=== PATIENT | male | born 1955 | race Caucasian/White ===

== ENCOUNTER 2020-09-30 12:52 | Outpatient (REF) | payer OTHER, SELFPAY ==
[2020-09-30 13:28] LABS: Hemoglobin 13.7 g/dl (14.0-18.0); Mean Corpuscular HGB Conc 33.4 g/dl (31.0-36.0); Mean Corpuscular Volume 89.7 fL (80-98); Mean Platelet Volume 11.7 fL (9.4-12.4); Platelet Count 154 X10*3/uL (160-400); Red Blood Count 4.57 X10*6/uL (4.60-5.80); White Blood Count 3.2 X10*3/uL (4.8-10.8)
[2020-09-30 13:53] LABS: Alanine Aminotransferase 27 U/L (0-40); Anion Gap 13 (12-20); Blood Urea Nitrogen 12 mg/dL (9-16); Calcium 9.2 mg/dL (8.4-10.2); Carbon Dioxide 29 mmol/L (22-29); Chloride 106 mmol/L (96-108); Cholesterol 225 mg/dL; Estimated Glomerular Filt Rate > 60; Glucose Random 122 mg/dL (60-115); HDL Cholesterol 45 mg/dL; Potassium 4.5 mmol/l (3.3-5.1); Sodium 143 mmol/L (135-145)
[2020-09-30 16:27] LABS: Cocaine Screen Urine Not Detected (Not Detect); Opiate Screen Urine POSITIVE (Not Detect)
[2020-09-30 16:34] LABS: Benzodiazepines Screen Urine Not Detected (Not Detect)
[2020-10-01 07:16] LABS: LDL Cholesterol Direct 155 mg/dL (<100)
[2020-10-03 22:32] LABS: Fentanyl, Ur NEGATIVE ng/mL (<0.5)
[2020-10-04 10:27] LABS: Buprenorphine Negative; Norbuprenorphine Negative
[2020-10-04 17:01] LABS: Oxymorphone Random Urine NEGATIVE ng/mL (<50)
[2020-10-05 11:10] LABS: Oxycodone Random Urine NEGATIVE ng/mL (<50)
[2020-10-05 14:21] LABS: EDDP (Methadone Metabolite) negative; Methadone, Urine MS negative
== END 2020-09-30 12:53 | disposition home or self-care (01) ==
LOC: HO.LAB 12:52
PROVIDERS: PCP Internal Medicine; Visit Provider Internal Medicine
DX: E78.5 Hyperlipidemia, unspecified (principal); Z79.891 Long term (current) use of opiate analgesic; Z00.00 Encounter for general adult medical examination without abnormal findings; I10 Essential (primary) hypertension; J45.909 Unspecified asthma, uncomplicated
CPT/HCPCS: 36415; 80048; 80307; 80348; 80354; 80358; 80365; 82465; 83718; 83721; 84460; 85027

== ENCOUNTER 2020-12-16 11:35 | Outpatient (REF) | payer OTHER, SELFPAY ==
[2020-12-16 13:10] LABS: Cocaine Screen Urine Not Detected (Not Detect); Opiate Screen Urine POSITIVE (Not Detect)
[2020-12-19 11:28] LABS: Alphahydroxymidazolam,GCMS Ur NEGATIVE ng/mL (<50); Alphahydroxytriazolam, GCMS Ur NEGATIVE ng/mL (<50); Alprazolam, GCMS Urine NEGATIVE ng/mL (<25); Aminoclonazepam, GCMS Urine NEGATIVE ng/mL (<25); Flurazepam Metabolite,GCMS Ur NEGATIVE ng/mL (<50); Lorazepam GCMS Urine NEGATIVE ng/mL (<50); Nordiazepam, GCMS Urine NEGATIVE ng/mL (<50); Oxazepam, GCMS Urine NEGATIVE ng/mL (<50); Temazepam, GCMS Urine NEGATIVE ng/mL (<50)
[2020-12-19 13:02] LABS: Buprenorphine Negative; Norbuprenorphine Negative
[2020-12-19 18:12] LABS: Fentanyl, Ur NEGATIVE ng/mL (<0.5); Norfentanyl, Ur NEGATIVE ng/mL (<0.5)
[2020-12-19 20:58] LABS: Oxycodone Random Urine NEGATIVE ng/mL (<50); Oxymorphone Random Urine NEGATIVE ng/mL (<50)
[2020-12-20 10:17] LABS: EDDP (Methadone Metabolite) negative; Methadone, Urine MS negative
== END 2020-12-16 11:36 | disposition home or self-care (01) ==
LOC: HO.LAB 11:35
PROVIDERS: PCP Internal Medicine; Visit Provider Internal Medicine
DX: Z79.891 Long term (current) use of opiate analgesic (principal)
CPT/HCPCS: 80307; 80346; 80348; 80354; 80358; 80365

== ENCOUNTER 2021-02-17 09:52 | Outpatient (REF) | payer OTHER, SELFPAY ==
[2021-02-17 10:59] LABS: MANUAL DIFF FLAG NO
[2021-02-17 11:05] LABS: Basophils Percent Auto 0.3 % (0-2); Eosinophils Absolute Auto 0.2 X10*3/uL (0.0-0.4); Eosinophils Percent Auto 2.4 % (0-4); Hematocrit 41.1 % (42-52); Hemoglobin 13.9 g/dl (14.0-18.0); Imm Gran Abs Auto 0.01 X10*3/uL (0.00-0.03); Imm Gran Pct Auto 0.2 % (0.0-0.4); Lymphocytes Absolute Auto 0.8 X10*3/uL (1.2-4.9); Lymphocytes Percent Auto 13.7 % (20-40); Mean Corpuscular HGB Conc 33.8 g/dl (31.0-36.0); Mean Corpuscular Hemoglobin 30.3 pg (27.0-33.0); Mean Corpuscular Volume 89.5 fL (80-98); Monocytes Absolute Auto 0.7 X10*3/uL (0.1-1.2); Monocytes Percent Auto 11.2 % (2-11); Neutrophils Absolute Auto 4.4 X10*3/uL (2.0-8.3); Neutrophils Percent Auto 72.2 % (45-73); Platelet Count 130 X10*3/uL (160-400); Red Blood Count 4.59 X10*6/uL (4.60-5.80); Red Cell Distribution Width 12.4 % (11.0-16.0); White Blood Count 6.2 X10*3/uL (4.8-10.8)
[2021-02-17 12:09] LABS: Alanine Aminotransferase 29 U/L (0-40); Anion Gap 13 (12-20); Blood Urea Nitrogen 24 mg/dL (9-16); Carbon Dioxide 32 mmol/L (22-29); Chloride 105 mmol/L (96-108); Cholesterol 134 mg/dL; Estimated Glomerular Filt Rate 41; Glucose Random 103 mg/dL (60-115); HDL Cholesterol 52 mg/dL; Potassium 4.1 mmol/L (3.3-5.1); Sodium 146 mmol/L (135-145)
[2021-02-17 12:10] LABS: Amphetamine Screen Urine Not Detected (Not Detect); Barbiturates, Urine Not Detected (Not Detect); Benzodiazepines Screen Urine Not Detected (Not Detect); Cannabinoid Screen Urine Not Detected (Not Detect); Cocaine Screen Urine Not Detected (Not Detect); Opiate Screen Urine POSITIVE (Not Detect); Phencyclidine Screen Urine Not Detected (Not Detect)
[2021-02-18 05:51] LABS: LDL Cholesterol Direct 57 mg/dL (<100)
[2021-02-20 02:06] LABS: Fentanyl, Ur NEGATIVE ng/mL (<0.5); Norfentanyl, Ur NEGATIVE ng/mL (<0.5)
[2021-02-22 09:12] LABS: Buprenorphine Negative; Norbuprenorphine Negative
== END 2021-02-17 09:53 | disposition home or self-care (01) ==
LOC: HO.LAB 09:52
PROVIDERS: PCP Internal Medicine; Visit Provider Internal Medicine
DX: Z00.00 Encounter for general adult medical examination without abnormal findings (principal); I10 Essential (primary) hypertension; E78.5 Hyperlipidemia, unspecified; J45.909 Unspecified asthma, uncomplicated; Z79.891 Long term (current) use of opiate analgesic
CPT/HCPCS: 80048; 80307; 80348; 80354; 82465; 83718; 83721; 84460; 85025

== ENCOUNTER 2021-03-31 12:01 | Day surgery (SDC) | payer OTHER, SELFPAY ==
[2021-03-27 11:45] VITALS: BMI 28.8
--- NOTE | 2021-03-29 13:42 | HO.ANESPROP2 ---
HPI - Anesthesia Eval Consult details Narrative: 66yo M for Colonoscopy chronic opioids PMFSH Past Medical History Medical History Anxiety and depression Arthritis Asthma Elevated cholesterol HTN (hypertension) Low back pain Surgical History Surgical History Hx of anterior cruciate ligament surgery Hx of colonoscopy Hx of shoulder surgery Social History Social History Smoking Status: Never smoker Use of substances other than those prescribed or required for medical reasons: No Are you DNR?: No Advance Directives: No Advance Directives Information Provided: No Advance Directives on File: No Meds Allergies Allergy/AdvReac Type Severity Reaction Status Date / Time No Known Allergies Allergy Verified 03/31/21 12:50 Home Medications Medication Instructions Recorded Confirmed Last Taken Type albuterol sulfate 2 puff INHALATION Q6H PRN 03/27/21 03/27/21 Unknown History amlodipine-benazepril 1 cap PO DAILY 03/27/21 03/27/21 Unknown History bupropion HCl 1 tab PO BID 03/27/21 03/27/21 03/31/21 06:00 History buspirone 5 tab PO BEDTIME 03/27/21 03/27/21 Unknown History lisinopril 1 tab PO DAILY 03/27/21 03/27/21 Unknown History montelukast 1 tab PO BEDTIME 03/27/21 03/27/21 Unknown History morphine 1 tab PO QID PRN 03/27/21 03/27/21 03/31/21 06:00 History pravastatin 1 tab PO DAILY 03/27/21 03/27/21 Unknown History venlafaxine 100 mg PO QPM 03/27/21 03/27/21 Unknown History venlafaxine 200 mg PO QAM 03/27/21 03/27/21 03/31/21 06:00 History Exam Exam Date and Time: March 29, 2021 1342 Height,Weight and Vital Signs: Height 5 ft 8 in Weight 86.183 kg Assessment and Plan Assessment Anesthesia Assessment: Chart Reviewed
[2021-03-31 13:20] VITALS: BP 149/91; PULSE 74; RESP 18; TEMP 36.2; O2SAT 99
[2021-03-31] MEDS: Lactated Ringers 1,000 ML 100 ML IVCONT (13:38)
--- NOTE | 2021-03-31 14:29 | HO.ANESPROP2 ---
[facility] Past Medical History Medical History Anxiety and depression Arthritis Asthma Elevated cholesterol HTN (hypertension) Low back pain Surgical History Surgical History Hx of anterior cruciate ligament surgery Hx of colonoscopy Hx of shoulder surgery Social History Social History Smoking Status: Never smoker Use of substances other than those prescribed or required for medical reasons: No Are you DNR?: No Advance Directives: No Advance Directives Information Provided: No Advance Directives on File: No Meds Allergies Allergy/AdvReac Type Severity Reaction Status Date / Time No Known Allergies Allergy Verified 03/31/21 12:50 Active Medications: Current Medications Generic Name Dose Route Start Last Admin Trade Name Freq PRN Reason Stop Dose Admin Albuterol Sulfate 2.5 mg 03/31/21 13:03 Albuterol Sulfate (0.083%) 2.5 Mg/3 Ml Vial.Neb INHALE ONCE PRN Shortness of Breath/Wheezing Lactated Ringer's 1,000 mls @ 100 mls/hr 03/31/21 13:15 03/31/21 13:38 Lr IVCONT 100 mls/hr .Q10H ELIDIA Administration Sodium Biphosphate/Sodium Phosphate 133 ml 03/31/21 13:03 Sodium Phosphate,Kane-Dibasic 133 Ml Enema [place] ONCE PRN Poor Colonoscopy Prep Results Home Medications Medication Instructions Recorded Confirmed Last Taken Type albuterol sulfate 2 puff INHALATION Q6H PRN 03/27/21 03/27/21 Unknown History amlodipine-benazepril 1 cap PO DAILY 03/27/21 03/27/21 Unknown History bupropion HCl 1 tab PO BID 03/27/21 03/27/21 03/31/21 06:00 History buspirone 5 tab PO BEDTIME 03/27/21 03/27/21 Unknown History lisinopril 1 tab PO DAILY 03/27/21 03/27/21 Unknown History montelukast 1 tab PO BEDTIME 03/27/21 03/27/21 Unknown History morphine 1 tab PO QID PRN 03/27/21 03/27/21 03/31/21 06:00 History pravastatin 1 tab PO DAILY 03/27/21 03/27/21 Unknown History venlafaxine 100 mg PO QPM 03/27/21 03/27/21 Unknown History venlafaxine 200 mg PO QAM 03/27/21 03/27/21 03/31/21 06:00 History Exam Exam Date and Time: March 31, 2021 1429 Height,Weight and Vital Signs: Height 5 ft 8 in Weight 86.183 kg Last Vital Signs Temp 97.2 F 03/31/21 13:20 Pulse 74 03/31/21 13:20 Resp 18 03/31/21 13:20 BP 149/91 H 03/31/21 13:20 Pulse Ox 99 03/31/21 13:20 Airway Mallampati Class: II TM Dist: >3cm Neck ROM: Full Heart: RRR Lungs: CYA
[2021-03-31 14:54] VITALS: BP 110/72; PULSE 62; RESP 16; TEMP 36.7; O2SAT 99
--- NOTE | 2021-03-31 14:55 | PM.OP ---
Brief Operative Note Date of Service: 03/31/21 Pre-op diagnosis: Screening Post-op diagnosis: other (Colon polyps) Procedure: Colonoscopy to cecum and TI with biopsy and removal of polyps Surgeon: Malik Willson Anesthesia: MAC Was an Certified Residential Medication Aide used for this Procedure?: No Estimated blood loss (mL): 4.0 Pathology: other (A. Transverse colon polyp B. Colon polyp at 40cm C. Rectal polyp) Condition: stable Disposition: PACU
[2021-03-31 15:07] VITALS: BP 121/76; PULSE 66; RESP 18; O2SAT 99
--- NOTE | 2021-03-31 16:23 | OP_ITS ---
SURGEON: Malik Willson MD INDICATIONS: The patient presents for evaluation of colorectal cancer screening. Full consent has been obtained from him for this, including risks of bleeding and perforation. PREOPERATIVE DIAGNOSIS: Colorectal cancer screening. POSTOPERATIVE DIAGNOSIS: PROCEDURE PERFORMED: Colonoscopy to cecum and terminal ileum with biopsy and removal of polyps. ESTIMATED BLOOD LOSS: COMPLICATIONS: ANESTHESIA: Monitored anesthesia care. ASSISTANTS: SPECIMENS: POSTOPERATIVE DIAGNOSES: Colorectal cancer screening, colon polyps, diverticulosis, and internal hemorrhoids. DESCRIPTION OF PROCEDURE: The patient was placed in the left lateral decubitus position. The digital rectal exam revealed no abnormalities. The Olympus video pediatric colonoscope was entered into the rectum and advanced easily to the cecum. Once in the cecum, I did identify normal-appearing cecal pouch with appendiceal orifice and a normal-appearing ileocecal valve. The terminal ileum was cannulated and appeared normal. The scope was withdrawn back in the colon. The entire cecum and ileocecal valve appeared normal. The scope was slowly withdrawn assessing all mucosal surfaces carefully. Preparation was excellent. In the transverse colon, at 40 cm, and in the rectum, were flat approximately 4 or 5 mm polyps, which were all biopsied and completely removed with cold biopsy forceps. I did not visualize any other polyps, colitis, nor angiodysplasia. There was a [id number] amount of sigmoid diverticulosis. In the rectum, scope was retroflexed visualizing internal hemorrhoids, but no other pathology. The rectal mucosa appeared normal. The scope was straightened out and withdrawn from the patient. He tolerated the procedure well and was returned to recovery area in stable condition. IMPRESSION: 1. Colon polyps, status post biopsy and removal. 2. Diverticulosis. 3. Internal hemorrhoids. PLAN: The results of the biopsy will be checked. If these are tubular adenoma, I would recommend a followup colonoscopy in 5 years. If they are all hyperplastic, I would recommend a followup colonoscopy in 10 years. He was advised not to use any aspirin or NSAIDs for 1 week. This has been discussed with his . MD RAJESH Molina/LANETTEL / [id number]
== END 2021-03-31 15:45 | disposition home or self-care (01) ==
PROVIDERS: PCP Internal Medicine; Visit Provider Internal Medicine
PROC: 0DJD8ZZ Inspection of Lower Intestinal Tract, Via Natural or Artificial Opening Endoscopic (ICD-10-PCS; CPT 45378; principal; 2021-03-31 13:30)
DX: Z12.11 Encounter for screening for malignant neoplasm of colon (principal); D12.3 Benign neoplasm of transverse colon; D12.5 Benign neoplasm of sigmoid colon; K62.1 Rectal polyp; K57.30 Diverticulosis of large intestine without perforation or abscess without bleeding; K64.8 Other hemorrhoids; I10 Essential (primary) hypertension; F32.9 Major depressive disorder, single episode, unspecified; J45.909 Unspecified asthma, uncomplicated; Z79.899 Other long term (current) drug therapy
CPT/HCPCS: 45380; 88305

== ENCOUNTER 2021-04-26 09:58 | Outpatient (REF) | payer OTHER, SELFPAY ==
[2021-04-26 11:22] LABS: Blood Urea Nitrogen 22 mg/dL (9-16); Estimated Glomerular Filt Rate > 60; Potassium 4.1 mmol/L (3.3-5.1)
[2021-04-26 12:14] LABS: Amphetamine Screen Urine Not Detected (Not Detect); Barbiturates, Urine Not Detected (Not Detect); Benzodiazepines Screen Urine Not Detected (Not Detect); Cannabinoid Screen Urine Not Detected (Not Detect); Cocaine Screen Urine Not Detected (Not Detect); Opiate Screen Urine POSITIVE (Not Detect); Phencyclidine Screen Urine Not Detected (Not Detect)
[2021-04-29 12:27] LABS: EDDP (Methadone Metabolite) negative; Methadone, Urine MS negative
[2021-04-29 13:15] LABS: Fentanyl, Ur NEGATIVE; Norfentanyl, Ur NEGATIVE
[2021-05-02 08:23] LABS: Codeine, Ur NEGATIVE; Hydrocodone, Ur NEGATIVE; Hydromorphone, Ur 339
[2021-05-02 08:24] LABS: Morphine, Ur >10000; Norhydrocodone, Ur NEGATIVE
[2021-05-02 08:26] LABS: Oxycodone, Ur NEGATIVE; Oxymorphone, Ur NEGATIVE
== END 2021-04-26 09:59 | disposition home or self-care (01) ==
LOC: HO.LAB 09:58
PROVIDERS: PCP Internal Medicine; Visit Provider Internal Medicine
DX: I10 Essential (primary) hypertension (principal); Z87.891 Personal history of nicotine dependence
CPT/HCPCS: 80307; 80354; 80358; 80364; 80365; 82565; 84132; 84520

== ENCOUNTER 2021-07-28 11:19 | Outpatient (REF) | payer OTHER, SELFPAY ==
[2021-07-28 14:52] LABS: Cocaine Screen Urine Not Detected (Not Detect); Fentanyl, urine Not Detected (Not Detect); Opiate Screen Urine POSITIVE (Not Detect)
[2021-08-03 15:02] LABS: EDDP (Methadone Metabolite) negative; Methadone, Urine MS negative
[2021-08-05 07:59] LABS: Buprenorphine NEGATIVE
[2021-08-05 08:00] LABS: Naloxone NEGATIVE; Norbuprenorphine NEGATIVE
== END 2021-07-28 11:20 | disposition home or self-care (01) ==
LOC: HO.LAB 11:19
PROVIDERS: PCP Internal Medicine; Visit Provider Internal Medicine
DX: Z79.891 Long term (current) use of opiate analgesic (principal)
CPT/HCPCS: 80307; 80346; 80348; 80358; 80362; 80364; 80365

== ENCOUNTER 2021-10-27 11:07 | Outpatient (REF) | payer OTHER, SELFPAY ==
[2021-10-27 14:42] LABS: Amphetamine Screen Urine Not Detected (Not Detect); Barbiturates, Urine Not Detected (Not Detect); Benzodiazepines Screen Urine Not Detected (Not Detect); Cannabinoid Screen Urine Not Detected (Not Detect); Cocaine Screen Urine Not Detected (Not Detect); Fentanyl, urine Not Detected (Not Detect); Opiate Screen Urine POSITIVE (Not Detect); Phencyclidine Screen Urine Not Detected (Not Detect)
[2021-11-02 09:11] LABS: EDDP (Methadone Metabolite) negative; Methadone, Urine MS negative
[2021-11-06 11:55] LABS: Buprenorphine NEGATIVE; Naloxone NEGATIVE
== END 2021-10-27 11:08 | disposition home or self-care (01) ==
LOC: HO.LAB 11:07
PROVIDERS: PCP Internal Medicine; Visit Provider Internal Medicine
DX: Z79.891 Long term (current) use of opiate analgesic (principal)
CPT/HCPCS: 80307; 80348; 80358; 80362

== ENCOUNTER 2022-02-19 13:37 | Outpatient (REF) | payer OTHER, SELFPAY ==
[2022-02-19 14:57] LABS: Alanine Aminotransferase 21 U/L (0-40); Anion Gap 14 (12-20); Blood Urea Nitrogen 26 mg/dL (9-16); Carbon Dioxide 25 mmol/L (22-29); Chloride 107 mmol/L (96-108); Estimated Glomerular Filt Rate 40; Glucose Random 111 mg/dL (60-115); HDL Cholesterol 45 mg/dL; Potassium 5.7 mmol/L (3.3-5.1); Sodium 140 mmol/L (135-145)
[2022-02-19 16:27] LABS: Amphetamine Screen Urine Not Detected (Not Detect); Barbiturates, Urine Not Detected (Not Detect); Benzodiazepines Screen Urine Not Detected (Not Detect); Cannabinoid Screen Urine Not Detected (Not Detect); Cocaine Screen Urine Not Detected (Not Detect); Fentanyl, urine Not Detected (Not Detect); Opiate Screen Urine POSITIVE (Not Detect); Phencyclidine Screen Urine Not Detected (Not Detect)
[2022-02-21 05:31] LABS: LDL Cholesterol Direct 63 mg/dL (<100)
== END 2022-02-19 13:38 | disposition home or self-care (01) ==
LOC: HO.LAB 13:37
PROVIDERS: PCP Internal Medicine; Visit Provider Internal Medicine
DX: Z00.00 Encounter for general adult medical examination without abnormal findings (principal); I10 Essential (primary) hypertension; E78.5 Hyperlipidemia, unspecified
CPT/HCPCS: 80048; 80307; 83718; 83721; 84460

== ENCOUNTER 2022-03-01 11:22 | Outpatient (REF) | payer OTHER, SELFPAY ==
[2022-03-01 12:07] LABS: Appearance Urine CLEAR; Color Urine YELLOW; Glucose Urine UA NEG (NEG); Leukocyte Esterase Urine NEG (NEG); Nitrite Urine NEG (NEG); Specific Gravity - Urine >= 1.030 (1.005-1.025); Urine Blood NEG (NEG); Urine Ketones NEG (NEG); Urine Protein NEG (NEG-TRACE)
[2022-03-01 12:12] LABS: Estimated Glomerular Filt Rate 45; Sodium 141 mmol/L (135-145)
[2022-03-01 12:40] LABS: Creatinine Urine 157.28 mg/dL
== END 2022-03-01 11:23 | disposition home or self-care (01) ==
LOC: HO.LAB 11:22
PROVIDERS: PCP Internal Medicine; Visit Provider Internal Medicine
DX: R79.89 Other specified abnormal findings of blood chemistry (principal)
CPT/HCPCS: 36415; 81003; 82565; 84295; 84300

== ENCOUNTER 2022-03-28 13:41 | Outpatient (REF) | payer OTHER, SELFPAY ==
--- NOTE | ~2022-03-28 | US_ITS ---
EXAMINATION: US RETROPERITONEAL COMPLETE (RENAL) CLINICAL INFORMATION: Hypertension, chronic kidney disease, mass and hydronephrosis.. COMPARISON: None TECHNIQUE: Real-time imaging of the kidneys and bladder. Retroperitoneal Doppler imaging was performed of the kidneys and aorta. FINDINGS: ULTRASOUND KIDNEYS: RIGHT KIDNEY: 10.0 x 5.6 x 6.5 cm (SAG x AP x TRV). The kidney is normal in size, contour, and echogenicity. Renal cortical thickness is normal. No calculi or focal parenchymal lesions. No hydronephrosis. There is anechoic cyst lower pole measuring 1.1 x 0.8 x 0.7 cm. There are 2 echogenic stones in the midpole measuring 0.5 x 0.4 x 0.6 cm and the lower pole measuring 0.3 x 0.3 x 0.4 cm. There is mild hydronephrosis and proximal hydroureter. LEFT KIDNEY: 11.6 x 5.3 x 4.7 cm (SAG x AP x TRV). The kidney is normal in size, contour, and echogenicity. Renal cortical thickness is normal. No calculi or focal parenchymal lesions. No hydronephrosis. BLADDER: Well distended and normal. Bilateral ureteral jets are demonstrated. Prevoid bladder volume is 213 mL. Postvoid bladder volume is 11 mL. There are calcifications in the prostate gland. DOPPLER ULTRASOUND: RIGHT KIDNEY: The proximal renal artery velocity measures 87 cm/second, mid-segment measures 88 cm/second, distal segment measures 90 cm/second. Average resistive index is 0.6 cm. Renal aortic ratio measures 1.05. LEFT KIDNEY: Proximal renal artery velocity measures 45 cm/sec, mid-segment measures 111 cm/second and distal segment measures 347 cm/second. Renal aortic ratio is elevated measuring 4.03 cm. Resistive index is 0.6. Findings are highly suspicious for renal artery stenosis. Mid abdominal aorta peak systolic velocity measures 86 cm/second. US/US retroperitoneal comp IMPRESSION: Nonobstructive echogenic stones in the mid and lower pole of the right kidney with [id number] hydroureteronephrosis. The mid and the distal segments of the ureters are unable to be visualize. Anechoic cyst lower pole of the right kidney. Unremarkable left kidney. Normal prostate gland with echogenic calcifications. Tiny post void residual bladder volume with normal bilateral ureteral jets. Normal renal Doppler exam right kidney. Findings are highly suspicious for left renal artery stenosis based on Doppler findings.
--- NOTE | ~2022-03-28 | US_ITS ---
EXAMINATION: US RETROPERITONEAL COMPLETE (RENAL) CLINICAL INFORMATION: Hypertension, chronic kidney disease, mass and hydronephrosis.. COMPARISON: None TECHNIQUE: Real-time imaging of the kidneys and bladder. Retroperitoneal Doppler imaging was performed of the kidneys and aorta. FINDINGS: ULTRASOUND KIDNEYS: RIGHT KIDNEY: 10.0 x 5.6 x 6.5 cm (SAG x AP x TRV). The kidney is normal in size, contour, and echogenicity. Renal cortical thickness is normal. No calculi or focal parenchymal lesions. No hydronephrosis. There is anechoic cyst lower pole measuring 1.1 x 0.8 x 0.7 cm. There are 2 echogenic stones in the midpole measuring 0.5 x 0.4 x 0.6 cm and the lower pole measuring 0.3 x 0.3 x 0.4 cm. There is mild hydronephrosis and proximal hydroureter. LEFT KIDNEY: 11.6 x 5.3 x 4.7 cm (SAG x AP x TRV). The kidney is normal in size, contour, and echogenicity. Renal cortical thickness is normal. No calculi or focal parenchymal lesions. No hydronephrosis. BLADDER: Well distended and normal. Bilateral ureteral jets are demonstrated. Prevoid bladder volume is 213 mL. Postvoid bladder volume is 11 mL. There are calcifications in the prostate gland. DOPPLER ULTRASOUND: RIGHT KIDNEY: The proximal renal artery velocity measures 87 cm/second, mid-segment measures 88 cm/second, distal segment measures 90 cm/second. Average resistive index is 0.6 cm. Renal aortic ratio measures 1.05. LEFT KIDNEY: Proximal renal artery velocity measures 45 cm/sec, mid-segment measures 111 cm/second and distal segment measures 347 cm/second. Renal aortic ratio is elevated measuring 4.03 cm. Resistive index is 0.6. Findings are highly suspicious for renal artery stenosis. Mid abdominal aorta peak systolic velocity measures 86 cm/second. US/US renal doppler IMPRESSION: Nonobstructive echogenic stones in the mid and lower pole of the right kidney with [id number] hydroureteronephrosis. The mid and the distal segments of the ureters are unable to be visualize. Anechoic cyst lower pole of the right kidney. Unremarkable left kidney. Normal prostate gland with echogenic calcifications. Tiny post void residual bladder volume with normal bilateral ureteral jets. Normal renal Doppler exam right kidney. Findings are highly suspicious for left renal artery stenosis based on Doppler findings.
== END 2022-03-28 13:42 | disposition home or self-care (01) ==
LOC: HO.HMGCX 13:41
PROVIDERS: PCP Internal Medicine; Visit Provider Internal Medicine
DX: I12.9 Hypertensive chronic kidney disease with stage 1 through stage 4 chronic kidney disease, or unspecified chronic kidney disease (principal); N18.9 Chronic kidney disease, unspecified; N13.30 Unspecified hydronephrosis
CPT/HCPCS: 76770; 93975

== ENCOUNTER 2022-05-30 12:16 | Outpatient (REF) | payer OTHER, SELFPAY ==
[2022-05-30 16:04] LABS: Amphetamine Screen Urine Not Detected (Not Detect); Barbiturates, Urine Not Detected (Not Detect); Benzodiazepines Screen Urine Not Detected (Not Detect); Cannabinoid Screen Urine Not Detected (Not Detect); Cocaine Screen Urine Not Detected (Not Detect); Fentanyl, urine Not Detected (Not Detect); Opiate Screen Urine POSITIVE (Not Detect); Phencyclidine Screen Urine Not Detected (Not Detect)
[2022-06-04 09:39] LABS: Buprenorphine NEGATIVE; Naloxone NEGATIVE; Norbuprenorphine NEGATIVE
[2022-06-09 08:02] LABS: Codeine, Ur NEGATIVE; Hydrocodone, Ur NEGATIVE; Hydromorphone, Ur 582
[2022-06-09 08:03] LABS: Morphine, Ur >10000; Norhydrocodone, Ur NEGATIVE; Noroxycodone, Ur 4279
[2022-06-09 08:04] LABS: Oxycodone, Ur 2221; Oxymorphone, Ur 3416
== END 2022-05-30 12:17 | disposition home or self-care (01) ==
LOC: HO.LAB 12:16
PROVIDERS: PCP Internal Medicine; Visit Provider Internal Medicine
DX: Z79.891 Long term (current) use of opiate analgesic (principal)
CPT/HCPCS: 80307; 80348; 80362; 80364; 80365

== ENCOUNTER 2022-08-30 10:42 | Outpatient (REF) | payer OTHER, SELFPAY ==
[2022-08-30 12:53] LABS: Anion Gap 17 (12-20); Blood Urea Nitrogen 21 mg/dL (9-16); Calcium 10.3 mg/dL (8.4-10.2); Carbon Dioxide 27 mmol/L (22-29); Chloride 106 mmol/L (96-108); Estimated Glomerular Filt Rate > 60; Potassium 5.5 mmol/L (3.3-5.1); Sodium 144 mmol/L (135-145)
[2022-08-30 13:26] LABS: Appearance Urine Clear; Color Urine Yellow; Glucose Urine UA Negative (Negative); Leukocyte Esterase Urine Negative (Negative); Nitrite Urine Negative (Negative); PH 5.5 (5.0-9.0); Specific Gravity - Urine 1.025 (1.005-1.025); Urine Blood Negative (Negative); Urine Ketones Negative (Negative); Urine Protein Trace mg/dL (Neg-Trace)
[2022-08-30 13:34] LABS: Creatinine Urine 169.54 mg/dL; Protein/Creatinine Ratio, Ur 0.13 (<0.2); Total Protein Urine Random 22 mg/dL (<12)
[2022-08-30 13:40] LABS: Bacteria Urine None Seen (None Seen); Hyaline Casts Urine 0-2 /LPF (0-2); Squamous Epithelial Cell Urine 0-2 /HPF (0-2); WBC Urine 0-5 /HPF (0-5)
[2022-08-30 14:00] LABS: Amphetamine Screen Urine Not Detected (Not Detect); Barbiturates, Urine Not Detected (Not Detect); Benzodiazepines Screen Urine Not Detected (Not Detect); Cannabinoid Screen Urine Not Detected (Not Detect); Cocaine Screen Urine Not Detected (Not Detect); Fentanyl, urine Not Detected (Not Detect); Opiate Screen Urine POSITIVE (Not Detect); Phencyclidine Screen Urine Not Detected (Not Detect)
[2022-09-06 12:47] LABS: EDDP (Methadone Metabolite) negative; Methadone, Urine MS negative
== END 2022-08-30 10:43 | disposition home or self-care (01) ==
LOC: HO.LAB 10:42
PROVIDERS: Absent Provider Internal Medicine Nephrology; PCP Internal Medicine; Visit Provider Internal Medicine
DX: I12.9 Hypertensive chronic kidney disease with stage 1 through stage 4 chronic kidney disease, or unspecified chronic kidney disease (principal); N18.9 Chronic kidney disease, unspecified; Z79.891 Long term (current) use of opiate analgesic
CPT/HCPCS: 36415; 80051; 80307; 80358; 81001; 82310; 82565; 84156; 84520

== ENCOUNTER 2023-02-19 12:14 | Outpatient (REF) | payer OTHER, SELFPAY ==
[2023-02-19 14:51] LABS: Amphetamine Screen Urine Not Detected (Not Detect); Barbiturates, Urine Not Detected (Not Detect); Benzodiazepines Screen Urine Not Detected (Not Detect); Cannabinoid Screen Urine Not Detected (Not Detect); Cocaine Screen Urine Not Detected (Not Detect); Fentanyl, urine Not Detected (Not Detect); Opiate Screen Urine POSITIVE (Not Detect); Phencyclidine Screen Urine Not Detected (Not Detect)
[2023-02-24 12:33] LABS: EDDP (Methadone Metabolite) negative; Methadone, Urine MS negative
[2023-02-26 10:34] LABS: Buprenorphine NEGATIVE; Naloxone NEGATIVE; Norbuprenorphine NEGATIVE
[2023-02-26 10:36] LABS: Oxycodone Screen Urine NEGATIVE
== END 2023-02-19 12:15 | disposition home or self-care (01) ==
LOC: HO.LAB 12:14
PROVIDERS: PCP Nurse Practitioner Family; Visit Provider Nurse Practitioner Family
DX: Z79.891 Long term (current) use of opiate analgesic (principal)
CPT/HCPCS: 80307; 80348; 80358; 80362

== ENCOUNTER 2023-04-19 18:34 | Emergency (ER) | payer OTHER, SELFPAY ==
--- NOTE | ~2023-04-19 | CT_ITS ---
EXAMINATION: CT ABDOMEN AND PELVIS WITHOUT CONTRAST CLINICAL INFORMATION: Right flank pain COMPARISON: None available. TECHNIQUE: Multidetector volumetric imaging was performed from the superior aspect of the liver through the pubic symphysis. Sagittal and coronal reformatted images were obtained on the technologist's workstation. This CT examination was performed using dose optimization techniques as appropriate, variously including the following: *Automated exposure control *Adjustment of mA and/or kV according to patient size (this includes techniques or standardized protocols for targeted exams where dose is matched to indication/reason for exam; i.e. extremities or head) *Use of iterative reconstruction technique DLP: 703 mGy-cm FINDINGS: LUNG BASES: The visualized lung bases are unremarkable. LIVER, GALLBLADDER, AND BILIARY TREE: The liver is normal in size, shape, and attenuation. No focal hepatic lesion or biliary ductal dilatation is present. The gallbladder is unremarkable with no evidence of radiopaque gallstones, gallbladder wall thickening, or obvious pericholecystic inflammatory changes. PANCREAS: Unremarkable. SPLEEN: Unremarkable. ADRENAL GLANDS: Unremarkable. KIDNEYS AND URETERS: The kidneys are normal in size, shape, and attenuation. There is moderate right hydroureteronephrosis with perinephric and periureteral fat stranding. Distal ureteral 0.3 cm calculus is identified, approximately 2.5 cm proximal to the ureterovesicular junction. There is a nonobstructing right midpole 0.4 cm calculus which is 15 cm from the posterior axillary line. BLADDER: Normally distended bladder. There is a prominent calculus in the right posterior aspect of the bladder near the ureterovesicular junction. This measures 0.9 cm. This measures 940 Hounsfield units. GASTROINTESTINAL TRACT: The stomach is unremarkable. Normal caliber of the small bowel. No obstruction. Normal appendix. No colonic wall thickening or acute inflammation. No free air or free fluid. ABDOMINAL WALL: Small fat-containing umbilical hernia. LYMPH NODES: Normal. VASCULAR: Unremarkable. PELVIC VISCERA: The prostate and seminal vesicles are unremarkable. OSSEOUS STRUCTURES: No acute or suspicious osseous abnormality. Degenerative changes of the spine, greatest at the lower lumbar spine with vacuum disc phenomenon. Mild degenerative change of both hips. CT/CT abdomen pelvis wo IV con IMPRESSION: 1. Moderate right hydroureteronephrosis with a 0.3 cm distal ureteral obstructing calculus. 2. Additional nonobstructing right renal calculus. Prominent calculus in the bladder near the ureterovesicular junction. Fleischner guidelines were followed.
[2023-04-19 19:33] VITALS: BP 173/106; PULSE 62; RESP 18; TEMP 36; O2SAT 96; BMI 32.0
--- NOTE | 2023-04-19 19:39 | ED.GENADULT ---
HPI - General Adult General Chief complaint: Urogenital-Male Stated complaint: kidney stone, a lot of pain Time Seen by Provider: 04/19/23 21:16 Source: patient Mode of arrival: ambulatory Limitations: no limitations History of Present Illness HPI narrative: 68-year-old male with history of kidney stones presents the ER with complaints of right-sided flank pain since 04/09 with nausea. No urinary symptoms, fevers or chills. Patient reports history of renal colic and this feels similar. Related Data Home Medications Medication Instructions Recorded Confirmed albuterol sulfate 90 mcg/actuation 2 puff inhalation Q6H PRN 03/27/21 03/27/21 aerosol inhaler Shortness Of Breath Or Wheezing amlodipine 5 mg-benazepril 40 mg 1 cap PO DAILY 03/27/21 03/27/21 capsule bupropion HCl 200 mg tablet,12 hr 1 tab PO BID 03/27/21 03/27/21 sustained-release buspirone 5 mg tablet 5 tab PO BEDTIME 03/27/21 03/27/21 lisinopril 40 mg tablet 1 tab PO DAILY 03/27/21 03/27/21 montelukast 10 mg tablet 1 tab PO BEDTIME 03/27/21 03/27/21 morphine 15 mg immediate release 1 tab PO QID PRN Pain 03/27/21 03/27/21 tablet pravastatin 80 mg tablet 1 tab PO DAILY 03/27/21 03/27/21 venlafaxine 100 mg tablet 100 mg PO QPM 03/27/21 03/27/21 venlafaxine 100 mg tablet 200 mg PO QAM 03/27/21 03/27/21 Previous Rx's Medication Instructions Recorded tamsulosin 0.4 mg capsule (Flomax) 0.4 mg PO DAILY #30 caps 04/19/23 Allergies Allergy/AdvReac Type Severity Reaction Status Date / Time No Known Allergies Allergy Verified 04/19/23 19:33 Review of Systems Review of Systems: Yes all other systems are reviewed and are negative Constitutional: Constitutional: Reports no additional constitutional complaints, Denies body ache(s), Denies chills, Denies fever(s), Denies headache(s) and Denies weakness Eyes: Eyes: Reports no additional eye complaints and Denies change in vision ENT: Reports system reviewed and no additional complaints, except as documented, Denies dizziness, Denies headache(s), Denies nasal congestion, Denies nasal discharge and Denies neck pain Cardiovascular: Cardiovascular: Reports no additional cardiovascular complaints, Denies chest pain, Denies leg edema and Denies dyspnea Respiratory: Respiratory: Reports no additional respiratory complaints, Denies cough and Denies dyspnea Gastrointestinal: Gastrointestinal: Reports no additional gastrointestinal complaints, Denies abdominal pain, Denies diarrhea, Reports nausea and Denies vomiting Genitourinary: Genitourinary: Denies urinary incontinence Musculoskeletal: Musculoskeletal: Reports no additional musculoskeletal complaints, Reports back pain, Denies arthralgias, Denies joint swelling, Denies neck pain, Denies numbness and Denies tingling Integumentary/Breasts: Skin/Breast: Reports system reviewed and no additional complaints, except as docu and Denies rash Neurologic: Reports system reviewed and no additional complaints, except as documented, Denies dizziness, Denies headache(s), Denies numbness, Denies tingling and Denies weakness PMFSH Past Medical History Attestation statement: The following information was validated with the patient. Source: old records reviewed and nursing notes reviewed Medical History Anxiety and depression Arthritis Asthma Elevated cholesterol HTN (hypertension) Low back pain Surgical History Hx of anterior cruciate ligament surgery Hx of colonoscopy Hx of shoulder surgery Social History Social History Alcohol intake: never Smoked in Last 30 Days: No Use of substances other than those prescribed or required for medical reasons: No Advance Directives: No Advance Directives Information Provided: Yes Physical Exam ED Vital Signs: Vital Signs - 24 hr 04/19/23 19:33 04/19/23 21:01 04/19/23 21:40 Temperature 96.8 F 97.7 F 98 F Pulse Rate 62 71 68 Respiratory Rate 18 16 16 Blood Pressure 173/106 H 167/97 H 132/80 Pulse Oximetry 96 98 98 Oxygen Delivery Method Room Air Room Air Room Air 04/19/23 23:41 Temperature 98.5 F Pulse Rate 76 Respiratory Rate 16 Blood Pressure 111/79 Pulse Oximetry 96 Oxygen Delivery Method Room Air BMI result Body Mass Index 32.0 Const General: cooperative, healthy appearing, comfortable and no acute distress Orientation/consciousness: patient oriented x3 Limitations: no limitations HENMT Head: Yes normal to inspection Ears: hearing grossly normal bilaterally Eyes General: appearance normal, both eyes and all related structures Pupils: Equal, round and reactive pupils present Neck Neck: Yes normal visual inspection Chest Chest palpation & inspection: normal inspection of the chest Resp Effort & Inspection: normal respiratory effort Auscultation: clear to auscultation bilaterally Cardio Rate: regular rate Rhythm: regular rhythm Peripheral pulses: Peripheral pulses 2+ throughout GI Inspection: Yes normal to inspection Palpation (GI): Soft to palpation and nontender Auscultation: normal bowel sounds General: Yes CVA tenderness (right side) Back/Spine/Pelvis Back: CVA tenderness (right side) Skin General skin exam: no rashes or lesions noted Neuro General: patient oriented x3 and moves all extremities Cranial nerves: Yes Equal, round and reactive pupils present Cognition (Neuro): normal cognition Gait exam (Neuro): Normal gait present Course Course Course Narrative: This is an RME: Additional HPI, ROS, PE not included below will be deferred to primary provider. This is a [id number]-male, hx of kidney stones 15 years ago, presenting today with complaints of right sided flank pain since today. Patient has a history of kidney stones about 15 years ago and symptoms feel exactly like kidney stones he has had in the past. Patient endorsing nausea, blood in urine. Feeling as though he is going to pass out, patient is diaphoretic. Patient took morphine 15 mg around 530 this afternoon, which he has a prescription for for chronic right shoulder pain scheduled to have a right shoulder replacement in the near future. Pt hypertensive at 173/106, pt afebrile, all other VSS. Plan: Labs, CT abd/pelvis, UA ordered. Informed charge nurse that patient is very uncomfortable and would benefit from getting a bed in the main ED in the near future. Reevaluation(s) Reevaluation #1: 1353-CT shows IMPRESSION: 1.? Moderate right hydroureteronephrosis with a 0.3 cm distal ureteral obstructing calculus. 2.? Additional nonobstructing right renal calculus. Prominent calculus in the bladder near the ureterovesicular junction. ? -pain is well controlled. Plan for discharge home with follow-up with Urology. Reviewed worrisome signs and symptoms of when to return to the emergency room. Comfortable him for discharge home Reevaluation #2: Patient has morphine at home which she takes for pain. Therefore I will cancel they oxycodone Medications Administered Discontinued Medications Generic Name Dose Route Start Last Admin Trade Name Jenny PRN Reason Stop Dose Admin Sodium Chloride 1,000 mls @ 999 mls/hr 04/19/23 21:15 04/19/23 22:17 Ns IV 04/19/23 22:15 Infused .Q1H1M ELIDIA Infusion Sodium Chloride 1,000 mls @ 999 mls/hr 04/19/23 22:12 04/19/23 23:24 Ns IV 04/19/23 23:12 Infused .Q1H1M STA Infusion Ketorolac Tromethamine 30 mg 04/19/23 21:03 04/19/23 21:08 Ketorolac Tromethamine 30 Mg/Ml Vial IVPUSH 04/19/23 21:04 30 mg ONCE ONE Administration Morphine Sulfate 4 mg 04/19/23 21:22 04/19/23 21:32 Morphine Sulfate 4 Mg/Ml Cartridge IVPUSH 04/19/23 21:23 4 mg ONCE ONE Administration Protocol Morphine Sulfate 4 mg 04/19/23 22:12 04/19/23 22:19 Morphine Sulfate 4 Mg/Ml Cartridge IVPUSH 04/19/23 22:13 4 mg ONCE ONE Administration Protocol Ondansetron HCl 4 mg 04/19/23 21:04 04/19/23 21:08 Ondansetron Hcl 4 Mg/2 Ml Vial IVPUSH 04/19/23 21:05 4 mg ONCE ONE Administration Medical Decision Making Medical Decision Making [facility] Narrative: 68-year-old male here with right flank pain and nausea sudden onset at 05:30 history of renal colic and this feels similar On exam right CVA tenderness. Will check labs, UA, CT Differential Diagnosis Differential Diagnoses: The differential diagnosis associated with the presentation includes Renal colic, pyelonephritis Lab Data [facility] Lab Attestation statement: I reviewed the patient's lab results. 04/19/23 20:03 04/19/23 20:03 Labs: Lab Results 04/19/23 04/19/23 04/19/23 Range/Units 20:03 20:03 22:53 WBC 8.4 (4.8-10.8) X10*3/uL RBC 5.08 (4.60-5.80) X10*6/uL Hgb 14.9 (14.0-18.0) g/dl Hct 44.1 (42.0-52.0) % MCV 86.8 (80.0-98.0) fL MCH 29.3 (27.0-33.0) pg MCHC 33.8 (31.0-36.0) g/dl RDW 13.6 (11.0-16.0) % Plt Count 149 L (160-400) X10*3/uL MPV 12.1 (9.4-12.4) fL Immature Gran % (Auto) 0.4 (0.0-0.4) % Neut % (Auto) 84.2 H (45-73) % Lymph % (Auto) 9.8 L (20-40) % Kidder % (Auto) 5.4 (2-11) % Eos % (Auto) 0.2 (0-4) % Baso % (Auto) 0.0 (0-2) % Lymph # (Auto) 0.8 L (1.2-4.9) X10*3/uL Kidder # (Auto) 0.5 (0.1-1.2) X10*3/uL Eos # (Auto) 0.0 (0.0-0.4) X10*3/uL Baso # (Auto) 0.0 (0.0-0.2) X10*3/uL Abs Immat Gran (auto) 0.03 (0.00-0.03) X10*3/uL Absolute Neuts (auto) 7.1 (2.0-8.3) x10*3/uL Absolute Nucleated RBC 0.000 (0.0-0.012) X10*3/uL Nucleated RBC % (auto) 0.0 (0.0-0.2) /100WBC Sodium 144 (135-145) mmol/L Potassium 4.6 (3.3-5.1) mmol/L Chloride 107 (96-108) mmol/L Carbon Dioxide 25 (22-29) mmol/L Anion Gap 17 (12-20) BUN 19 H (9-16) mg/dL Creatinine 1.28 (0.5-1.4) mg/dL Estim Creat Clear Calc 63.6 Estimated GFR 56 Random Glucose 164 H (60-115) mg/dL Calcium 10.4 H (8.4-10.2) mg/dL Total Bilirubin 0.5 (0.0-1.0) mg/dL Direct Bilirubin 0.1 (0.0-0.5) mg/dL AST 27 (5-37) U/L ALT 28 (0-40) U/L Alkaline Phosphatase 87 (39-117) U/L Total Protein 7.7 (6.5-8.0) g/dL Albumin 5.0 (3.5-5.0) g/dL Lipase 20 (8-78) U/L Urine Color Yellow Urine Appearance Clear Urine pH 6.0 (5.0-9.0) Ur Specific Moffett 1.020 (1.005-1.025) Urine Protein 100 (2+) H (Neg-Trace) mg/dL Urine Glucose (UA) Negative (Negative) mg/dL Urine Ketones Trace (Negative) mg/dL Urine Blood Large (3+) H (Negative) Urine Nitrite Negative (Negative) Ur Leukocyte Esterase Negative (Negative) Urine RBC >20 H (0-2) /HPF Urine WBC 0-5 (0-5) /HPF Ur Squamous Epith Cells 0-2 (0-2) /HPF Urine Bacteria None Seen (None Seen) Hyaline Casts 0-2 (0-2) /LPF Independent Interpretation I performed an independent interpretation of an: CT Scan Interpretation: I independently reviewed the CT scan reviewed with radiologist report Radiology Impression Discussion of test interpretation with radiology: I have reviewed the radiologist's reading. Radiologist Impression: EXAMINATION: CT ABDOMEN AND PELVIS WITHOUT CONTRAST? CLINICAL INFORMATION: Right flank pain? COMPARISON: None available. TECHNIQUE: Multidetector volumetric imaging was performed from the superior aspect of the liver through the pubic symphysis. Sagittal and coronal reformatted images were obtained on the technologist's workstation.? This CT examination was performed using dose optimization techniques as appropriate, variously including the following: *Automated exposure control *Adjustment of mA and/or kV according to patient size (this includes techniques or standardized protocols for targeted exams where dose is matched to indication/reason for exam; i.e. extremities or head) *Use of iterative reconstruction technique DLP: 703 mGy-cm FINDINGS: LUNG BASES: The visualized lung bases are unremarkable.? LIVER, GALLBLADDER, AND BILIARY TREE: The liver is normal in size, shape, and attenuation. No focal hepatic lesion or biliary ductal dilatation is present. The gallbladder is unremarkable with no evidence of radiopaque gallstones, gallbladder wall thickening, or obvious pericholecystic inflammatory changes.? PANCREAS: Unremarkable.? SPLEEN: Unremarkable.? ADRENAL GLANDS: Unremarkable.? KIDNEYS AND URETERS: The kidneys are normal in size, shape, and attenuation. There is moderate right hydroureteronephrosis with perinephric and periureteral fat stranding. Distal ureteral 0.3 cm calculus is identified, approximately 2.5 cm proximal to the ureterovesicular junction. There is a nonobstructing right midpole 0.4 cm calculus which is 15 cm from the posterior axillary line. BLADDER: Normally distended bladder. There is a prominent calculus in the right posterior aspect of the bladder near the ureterovesicular junction. This measures 0.9 cm. This measures 940 Hounsfield units.? GASTROINTESTINAL TRACT: The stomach is unremarkable. Normal caliber of the small bowel. No obstruction. Normal appendix. No colonic wall thickening or acute inflammation. No free air or free fluid.? ABDOMINAL WALL: Small fat-containing umbilical hernia.? LYMPH NODES: Normal. VASCULAR: Unremarkable. PELVIC VISCERA: The prostate and seminal vesicles are unremarkable.? OSSEOUS STRUCTURES: No acute or suspicious osseous abnormality. Degenerative changes of the spine, greatest at the lower lumbar spine with vacuum disc phenomenon. Mild degenerative change of both hips.? CT/CT abdomen pelvis wo IV con IMPRESSION: 1.? Moderate right hydroureteronephrosis with a 0.3 cm distal ureteral obstructing calculus. 2.? Additional nonobstructing right renal calculus. Prominent calculus in the bladder near the ureterovesicular junction. ? Fleischner guidelines were followed. Discharge Plan Discharge Clinical Impression: Renal colic Patient Disposition: Home, Self-Care Instructions: Renal Colic (ED) Additional Instructions: Increase fluids at home Follow-up with urology Return for worsening pain, vomiting, fever greater than 100.4 Prescriptions: New tamsulosin [Flomax] 0.4 mg capsule 0.4 mg PO DAILY Qty: 30 0RF No Action buspirone 5 mg tablet 5 tab PO BEDTIME venlafaxine 100 mg tablet 200 mg PO QAM pravastatin 80 mg tablet 1 tab PO DAILY montelukast 10 mg tablet 1 tab PO BEDTIME albuterol sulfate 90 mcg/actuation HFA aerosol inhaler 2 puff inhalation Q6H PRN (Reason: Shortness Of Breath Or Wheezing) lisinopril 40 mg tablet 1 tab PO DAILY bupropion HCl 200 mg tablet sustained-release 12 hr 1 tab PO BID amlodipine-benazepril 5-40 mg capsule 1 cap PO DAILY morphine 15 mg tablet 1 tab PO QID PRN (Reason: Pain) venlafaxine 100 mg Tablet 100 mg PO QPM Referrals: Celso Gonzales MD [Physician] - 1 week Feli Alcantara NP [Primary Care Provider] - 1 week Interventions: ED Discharge Assessment Last Done: 04/19/23 23:59 Discharge Date/Time: 04/20/23 00:00
[2023-04-19 20:08] LABS: MANUAL DIFF FLAG NO
[2023-04-19 20:13] LABS: Eosinophils Percent Auto 0.2 % (0-4); Hematocrit 44.1 % (42.0-52.0); Hemoglobin 14.9 g/dl (14.0-18.0); Imm Gran Abs Auto 0.03 X10*3/uL (0.00-0.03); Imm Gran Pct Auto 0.4 % (0.0-0.4); Lymphocytes Absolute Auto 0.8 X10*3/uL (1.2-4.9); Lymphocytes Percent Auto 9.8 % (20-40); Mean Corpuscular HGB Conc 33.8 g/dl (31.0-36.0); Mean Corpuscular Hemoglobin 29.3 pg (27.0-33.0); Mean Corpuscular Volume 86.8 fL (80.0-98.0); Mean Platelet Volume 12.1 fL (9.4-12.4); Monocytes Absolute Auto 0.5 X10*3/uL (0.1-1.2); Monocytes Percent Auto 5.4 % (2-11); Neutrophils Absolute Auto 7.1 x10*3/uL (2.0-8.3); Neutrophils Percent Auto 84.2 % (45-73); Platelet Count 149 X10*3/uL (160-400); Red Blood Count 5.08 X10*6/uL (4.60-5.80); Red Cell Distribution Width 13.6 % (11.0-16.0); White Blood Count 8.4 X10*3/uL (4.8-10.8)
[2023-04-19 20:37] LABS: Alanine Aminotransferase 28 U/L (0-40); Alkaline Phosphatase 87 U/L (39-117); Anion Gap 17 (12-20); Aspartate Amino Transferase 27 U/L (5-37); Bilirubin Direct 0.1 mg/dL (0.0-0.5); Bilirubin Total 0.5 mg/dL (0.0-1.0); Blood Urea Nitrogen 19 mg/dL (9-16); Calcium 10.4 mg/dL (8.4-10.2); Carbon Dioxide 25 mmol/L (22-29); Chloride 107 mmol/L (96-108); Creatinine Clr Calc Pharmacy 63.6; Estimated Glomerular Filt Rate 56; Glucose Random 164 mg/dL (60-115); Lipase 20 U/L (8-78); Potassium 4.6 mmol/L (3.3-5.1); Sodium 144 mmol/L (135-145); Total Protein 7.7 g/dL (6.5-8.0)
[2023-04-19 21:01] VITALS: BP 167/97; PULSE 71; RESP 16; TEMP 36.5; O2SAT 98
[2023-04-19] MEDS: Ketorolac Tromethamine 30 MG/ML VIAL IVPUSH (21:08)
[2023-04-19] MEDS: ondansetron HCL 4 MG/2 ML VIAL IVPUSH (21:08)
[2023-04-19] MEDS: 0.9 % Sodium Chloride 1,000 ML 999 ML IV ×2 (21:09→22:21)
--- NOTE | 2023-04-19 21:11 | PC.NURSE ---
Assumed care of pt. Pt lying on stretcher in obvious discomfort, at bedside. Pt complaint as stated in assessment. IV obtained, medications requested from provider and given as ordered. Plan to obtain urine specimen when able, VSS, ZIATM
[2023-04-19] MEDS: Morphine Sulfate 4 MG/ML CARTRIDGE IVPUSH ×2 (21:32→22:19)
[2023-04-19 21:40] VITALS: BP 132/80; PULSE 68; RESP 16; TEMP 36.6; O2SAT 98
[2023-04-19 23:00] LABS: Appearance Urine Clear; Color Urine Yellow; Glucose Urine UA Negative (Negative); Leukocyte Esterase Urine Negative (Negative); Nitrite Urine Negative (Negative); UMIC TRIGGER UACC YES; Urine Blood Large (3+) (Negative); Urine Ketones Trace mg/dL (Negative); Urine Protein 100 (2+) mg/dL (Neg-Trace)
[2023-04-19 23:02] LABS: Bacteria Urine None Seen (None Seen); Hyaline Casts Urine 0-2 /LPF (0-2); RBC Urine >20 /HPF (0-2); Squamous Epithelial Cell Urine 0-2 /HPF (0-2); WBC Urine 0-5 /HPF (0-5)
[2023-04-19 23:41] VITALS: BP 111/79; PULSE 76; RESP 16; TEMP 36.9; O2SAT 96
== END 2023-04-20 | disposition home or self-care (01) ==
PROVIDERS: Physician Assistant Medical; Emergency Provider Student in an Organized Health Care Education/Training Program; PCP Nurse Practitioner Family
DX: N23 Unspecified renal colic (principal); I10 Essential (primary) hypertension; J45.909 Unspecified asthma, uncomplicated; Z79.899 Other long term (current) drug therapy
CPT/HCPCS: 36415; 74176; 80048; 80076; 81001; 81003; 83690; 85025; 96361; 96374; 96375; 96376; 99284; 99285; J1885; J2270; J2405

== ENCOUNTER 2023-05-01 12:29 | Outpatient (REF) | payer OTHER, SELFPAY ==
[2023-05-09 17:09] LABS: Stone Source KIDNEY STONE
== END 2023-05-01 12:30 | disposition home or self-care (01) ==
LOC: HO.LNP 12:29
PROVIDERS: Visit Provider Nurse Practitioner Family
DX: N20.0 Calculus of kidney (principal)
CPT/HCPCS: 82365; 88300

== ENCOUNTER → 2023-05-01 12:29 | Outpatient (BNVA) | payer OTHER, SELFPAY | PROVIDERS: PCP Nurse Practitioner Family; Visit Provider Nurse Practitioner Family | DX: N20.0 Calculus of kidney (principal); N21.0 Calculus in bladder | CPT/HCPCS: 88300 ==

== ENCOUNTER 2023-05-01 19:14 | Outpatient (REF) | payer OTHER, SELFPAY | END 2023-05-01 19:15 | disposition home or self-care (01) | LOC: HO.LNP 19:14 | PROVIDERS: Visit Provider Nurse Practitioner Family | DX: N20.0 Calculus of kidney (principal); N21.0 Calculus in bladder | CPT/HCPCS: 88300 ==

== ENCOUNTER 2023-05-06 14:09 | Outpatient (AMB) | payer OTHER, SELFPAY ==
--- NOTE | 2023-05-06 14:31 | A.OFFVIS_ITS ---
Intake Intake Visit Reasons: cysto Intake Note: * Patient presents today for a CYSTO Procedure * Meds: None * Antibiotic: None * Blood Thinner: None * Urinalysis test clear for Cysto? Apparel Manager Required: No Accompanied by: Significant Other Allergies No Known Allergies Allergy (Verified 05/06/23 14:32) Medication List - Last Reconciled 05/06/23 by Celso Gonzales MD albuterol sulfate 90 mcg/actuation 2 puffs inhalation Q6H PRN amlodipine-benazepril 5-40 mg 1 cap PO DAILY buspirone 5 tabs PO BEDTIME lisinopril 1 tab PO DAILY montelukast 1 tab PO BEDTIME morphine 1 tab PO QID PRN pravastatin 1 tab PO DAILY tamsulosin (Flomax) 0.4 mg PO DAILY venlafaxine 200 mg PO QAM venlafaxine 100 mg PO QPM HPI HPI Comments History of Present Illness Details 05/06/23-- Burak is a 68-year-old male who presents to the office for cystoscopy procedure. The patient states he is scheduled for shoulder replacement in a week from now. The patient states that he has passed at least 2 stones. CAT scan results reviewed?04/19/23-- Mild hydronephrosis with a 3 mm distal ureteral stone. Bladder calculus near the right UPJ. Review of chart: LV?05/01/23-- with CAST ASSOCIATE Gina Vergara--Burak is a pleasant 68-year-old male patient of Dr. Alcantara. He presents to the office today as a new patient for nephrolithiasis. He has a past medical history of anxiety, depression, arthritis in bilateral shoulders, asthma, elevated cholesterol, hypertension, and low back pain. In discussion with the patient today he reports late last month and earlier this month seeking emergency room care for ongoing right-sided flank pain associated with nausea. He discusses having a previous history of kidney stones approximately 20 years ago that did not require surgical intervention. In review of patient's chart it appears CT with moderate right hydroureteronephrosis with a 0.3 cm distal ureteral obstructing calculus. There is a nonobstructing right mid pole 0.4 cm calculus. There is a prominent calculus in the right posterior aspect of the bladder near the ureterovesicular junction. This measures 0.9 cm. In discussion with the patient today he reports pain has since subsided over 1 week ago and brings to the office today a stone he has passed. Will send for stone analysis. He discuss at length his upcoming surgery on May 15 for right shoulder surgery. In office urinalysis results reviewed with the patient today. When asked he denies urinary urgency, urinary frequency, incontinence, nocturia, hematuria, dysuria, foul smelling urine, changes to urinary stream, flank pain, fever, and or chills. He is happy with his current voiding parameters. Discussed potential causes for nephrolithiasis and further workup with in office cystoscopy regarding 0.9 cm bl adder stone visualized on recent CT. Discussed risks and benefits of surveillance monitoring verses further workup. When asked he reports now to be drinking plenty of water daily however previously was not. He otherwise offers no issues or concerns at this time. 05/06/23--Evaluation today: blood-- negative, leukocytes-- negative. Cystoscopy findings-- No stone visualized in the bladder. Minimal edema at the right ureteral orifice which is likely due to passing a stone. Plan: Renal/bladder US was ordered. Follow-up after 3 months. [facility] Medical History Anxiety and depression Arthritis Asthma Elevated cholesterol HTN (hypertension) Low back pain Surgical History Hx of anterior cruciate ligament surgery Hx of colonoscopy Hx of shoulder surgery Social History Alcohol intake: never Review of Systems Const All systems reviewed & are unremarkable except as noted in HPI and below Reports no additional complaints Eyes Reports no additional complaints ENT Denies neck pain Card Denies leg edema Resp Denies cough GI Denies constipation Musc Reports no additional complaints and Denies neck pain Skin/Breast Denies rash and Denies unusual bruising Neuro Reports no additional complaints Psych Reports no additional complaints Endo Reports no additional complaints Tae/Lymph Reports no additional complaints Aller/Immun Reports no additional complaints Physical Exam Const General: healthy appearing, no acute distress and well developed Orientation/consciousness: patient oriented x3 HEENT Head: Yes normocephalic and Yes atraumatic Eyes Conjunctivae: conjunctivae normal Neck Neck: Yes normal visual inspection Chest Chest palpation & inspection: normal inspection of the chest Resp Effort & Inspection: normal respiratory effort Cardio Rate: regular rate GI Inspection: Yes normal to inspection Palpation (GI): Soft to palpation Penis: normal penis Scrotum: scrotum normal Skin General skin exam: no rashes or lesions noted Neuro General: patient oriented x3 Extrem General: No pedal edema Psych Appearance: grossly normal Affect: normal affect Office Procedures Cystoscopy Consent Discussed risk and benefit or proposed procedure with the patient. Information consent for procedure given to the patient. Discussed technical aspects, risks, benefits and alternatives in full. Addressed all of the patient's questions and concerns regarding the procedure. The patient demonstrated knowledge and understanding. They wish to proceed with this procedure. Preparation The patient was prepped in the usual manner. A tube draw helper was present and in the room. Genitalia was prepped with betadine solution in a sterile manner. Lidocaine Jelly 2% was placed into the urethra and 16Fr flexible Olympus cystoscope was inserted into the meatus after adequate lubrication. Procedure Time out per protocol performed. Bladder Inspection Bladder Inspection: The bladder was inspected in its entirety with utilization retroflexion displaying: Tumor(s): none Trabeculation: N/A Mucosal Erthema: N/A Orifices: normal shape and position Urethra: normal Cystoscopy findings: prostatic urethra non obstructive, bulbous urethra WNL, no suspicious bladder lesions visualized [id number] Procedure code (CPT) selection complete Office Meds lidocaine HCl Performing Provider: Celso Gonzales MD Administered by: Jamila Gomez RN on 05/06/23 14:48 Dose Route Admin Location Lot Number Expiration Date [facility] Clinical [facility] Aides Teacher 10 mL intra-urethral naproxen Performing Provider: Celso Gonzales MD Administered by: Jamila Gomez RN on 05/06/23 14:48 Dose Route Admin Location Lot Number Expiration Date [facility] Clinical [facility] Aides Teacher 500 mg PO ciprofloxacin HCl Performing Provider: Celso Gonzales MD Administered by: Jamila Gomez RN on 05/06/23 14:48 Dose Route Admin Location Lot Number Expiration Date [facility] Aides Teacher 500 mg PO Results AMB Urinalysis, Automated UA Leukoctes 0 Clifton/uL Last Edit by Whit Lund [facility] on 05/06/23 14:40 UA Nitrite Negative Last Edit by Whit Lund, [facility] on 05/06/23 14:40 UA Urobilinogen 02 mg/dL Last Edit by Whit Lund [facility] on 05/06/23 14:40 UA Protein 15 mg/dL Last Edit by Whit Lund, [facility] on 05/06/23 14:40 UA pH 6.0 Last Edit by Whit Lund [facility] on 05/06/23 14:40 UA Blood 0 Atilio/uL Last Edit by Whit Lund, [facility] on 05/06/23 14:40 UA Specific Fedora 1.025 Last Edit by Whit Lund [facility] on 05/06/23 14: 40 UA Ketone Negative Last Edit by Whit Lund, [facility] on 05/06/23 14:40 UA Bilirubin 0 mg/dL Last Edit by Whit Lund [facility] on 05/06/23 14:40 UA Glucose 0 mg/dL Last Edit by Whit Lund, [facility] on 05/06/23 14:40 Results Reviewed Results Reviewed: Laboratory Last Values Urine pH (Auto) 6.0 05/06/23 14:38 Specific Fedora (Auto) 1.025 05/06/23 14:38 Urine Protein (Auto) 15 mg/dL 05/06/23 14:38 Glucose (UA)(Auto) 0 mg/dL 05/06/23 14:38 Urine Ketones (Auto) Negative 05/06/23 14:38 Urine Blood (Auto) 0 Atilio/uL 05/06/23 14:38 Urine Nitrite (Auto) Negative 05/06/23 14:38 Urine Bilirubin (Auto) 0 mg/dL 05/06/23 14:38 Urine Urobilinogen (Auto) 02 mg/dL 05/06/23 14:38 Leukocyte Esterase (Auto) 0 Clifton/uL 05/06/23 14:38 Date of Service: 04/19/23 EXAMINATION: CT ABDOMEN AND PELVIS WITHOUT CONTRAST? CLINICAL INFORMATION: Right flank pain? COMPARISON: None available. TECHNIQUE: Multidetector volumetric imaging was performed from the superior aspect of the liver through the pubic symphysis. Sagittal and coronal reformatted images were obtained on the technologist's workstation.? This CT examination was performed using dose optimization techniques as appropriate, variously including the following: *Automated exposure control *Adjustment of mA and/or kV according to patient size (this includes techniques or standardized protocols for targeted exams where dose is matched to indication/reason for exam; i.e. extremities or head) *Use of iterative reconstruction technique DLP: 703 mGy-cm FINDINGS: LUNG BASES: The visualized lung bases are unremarkable.? LIVER, GALLBLADDER, AND BILIARY TREE: The liver is normal in size, shape, and attenuation. No focal hepatic lesion or biliary ductal dilatation is present. The gallbladder is unremarkable with no evidence of radiopaque gallstones, gallbladder wall thickening, or obvious pericholecystic inflammatory changes.? PANCREAS: Unremarkable.? SPLEEN: Unremarkable.? ADRENAL GLANDS: Unremarkable.? KIDNEYS AND URETERS: The kidneys are normal in size, shape, and attenuation. There is moderate right hydroureteronephrosis with perinephric and periureteral fat stranding. Distal ureteral 0.3 cm calculus is identified, approximately 2.5 cm proximal to the ureterovesicular junction. There is a nonobstructing right midpole 0.4 cm calculus which is 15 cm from the posterior axillary line. BLADDER: Normally distended bladder. There is a prominent calculus in the right posterior aspect of the bladder near the ureterovesicular junction. This measures 0.9 cm. This measures 940 Hounsfield units.? GASTROINTESTINAL TRACT: The stomach is unremarkable. Normal caliber of the small bowel. No obstruction. Normal appendix. No colonic wall thickening or acute inflammation. No free air or free fluid.? ABDOMINAL WALL: Small fat-containing umbilical hernia.? LYMPH NODES: Normal. VASCULAR: Unremarkable. PELVIC VISCERA: The prostate and seminal vesicles are unremarkable.? OSSEOUS STRUCTURES: No acute or suspicious osseous abnormality. Degenerative changes of the spine, greatest at the lower lumbar spine with vacuum disc phenomenon. Mild degenerative change of both hips.? IMPRESSION: 1.? Moderate right hydroureteronephrosis with a 0.3 cm distal ureteral obstructing calculus. 2.? Additional nonobstructing right renal calculus. Prominent calculus in the bladder near the ureterovesicular junction. Assessment & Plan Assessment & Plan (1) Nephrolithiasis: Code(s): N20.0 - Calculus of kidney (2) Bladder stone: Code(s): N21.0 - Calculus in bladder Plan Renal/baldder US was ordered. Follow-up after 3 months. Orders: Orders US retroperitoneal comp 05/09/23 N21.0 - Calculus in bladder, N20.1 - Calculus of ureter, N13.2 - Hydronephrosis with renal and ureteral calculous obstruction AMB Cystoscopy 05/06/23 N20.0 - Calculus of kidney, N21.0 - Calculus in bladder AMB Urinalysis Automated 05/06/23 Z13.9 - Encounter for screening, unspecified Patient Instructions: The patient had an opportunity to ask questions regarding treatment plan. All questions were answered. Imaging, Laboratory studies and physical exam results were discussed and reviewed in detail. No major barriers to understanding were identified. The patient expressed understanding and agreement with the above treatment plan. The patient is aware they should contact our office by phone for worsening of their current condition or the appearance of new symptoms. Compliance is encouraged with any medications and followup testing that is ordered. It is a privilege to be allowed the opportunity to participate in the urologic care of your patient. If you have any questions or concerns regarding treatment for the above conditions please do not hesitate to contact me. The office telephone contact is [phone]. This note is constructed in part using voice recognition software. While every effort has been made to ensure accuracy tube mill operator errors may have been included. Yours sincerely, Celso Gonzales MD Coding Level of Care Code Procedure Only Diagnoses Nephrolithiasis N20.0 Bladder stone N21.0 CPT Codes Cystoscopy - CPT: 64548-[id number] ([id number])
== END 2023-05-06 15:29 | disposition home or self-care (01) ==
PROVIDERS: PCP Nurse Practitioner Family; Visit Provider Urology
DX: N20.2 Calculus of kidney with calculus of ureter (principal)
CPT/HCPCS: 52000

== ENCOUNTER → 2023-05-06 14:09 | Outpatient (BNVA) | payer OTHER, SELFPAY | PROVIDERS: PCP Nurse Practitioner Family; Visit Provider Urology | DX: N20.0 Calculus of kidney (principal); N21.0 Calculus in bladder | CPT/HCPCS: 52000 ==

== ENCOUNTER 2023-05-09 08:45 | Outpatient (REF) | payer OTHER, SELFPAY ==
--- NOTE | ~2023-05-09 | US_ITS ---
EXAMINATION: US RETROPERITONEAL COMPLETE (RENAL) CLINICAL INFORMATION: Calculus in bladder. COMPARISON: CT abdomen and pelvis 04/19/2023. Renal ultrasound 03/28/2022. TECHNIQUE: Real-time imaging of the kidneys and bladder. FINDINGS: RIGHT KIDNEY: 10.0 x 4.8 x 6.2 cm (SAG x AP x TRV). The kidney is normal in size, contour, and echogenicity. Renal cortical thickness is normal. No hydronephrosis. Upper pole cyst measures 1.1 x 0.7 x 0.7 cm. Midpole nonobstructing calculus measures 6 mm. LEFT KIDNEY: 12.1 x 5.7 x 4.8 cm (SAG x AP x TRV). The kidney is normal in size, contour, and echogenicity. Renal cortical thickness is normal. No calculi or focal parenchymal lesions. No hydronephrosis. BLADDER: Well distended and normal. Bilateral ureteral jets are demonstrated. Prevoid bladder volume is 166 mL. Postvoid bladder volume is 5.6 mL. ADDITIONAL FINDINGS: Calcifications of the prostate gland. The prostate gland volume measures 30 mL. US/US retroperitoneal comp IMPRESSION: 6 mm nonobstructing right renal calculus. No hydronephrosis. Right renal cyst. No suspicious features.
== END 2023-05-09 08:46 | disposition home or self-care (01) ==
LOC: HO.HMGCX 08:45
PROVIDERS: PCP Nurse Practitioner Family; Visit Provider Urology
DX: N13.2 Hydronephrosis with renal and ureteral calculous obstruction (principal); N21.0 Calculus in bladder
CPT/HCPCS: 76770

== ENCOUNTER 2023-05-27 08:18 | Outpatient (REF) | payer OTHER, SELFPAY ==
[2023-05-27 09:51] LABS: Cholesterol 136 mg/dL; HDL Cholesterol 39 mg/dL; LDL Cholesterol Calculated 70 mg/dl; Triglycerides 139 mg/dL
[2023-05-27 10:02] LABS: Prostate Specific Antigen 0.17 ng/mL (<0.05-4.0)
[2023-05-27 12:12] LABS: Amphetamine Screen Urine Not Detected (Not Detect); Cocaine Screen Urine Not Detected (Not Detect); Opiate Screen Urine POSITIVE (Not Detect)
[2023-05-30 10:09] LABS: Oxycodone Screen Urine POSITIVE
[2023-05-30 10:17] LABS: Buprenorphine NEGATIVE; Naloxone NEGATIVE; Norbuprenorphine NEGATIVE
[2023-05-31 09:49] LABS: Fentanyl, Ur NEGATIVE; Norfentanyl, Ur NEGATIVE
[2023-06-02 10:04] LABS: EDDP (Methadone Metabolite) negative; Methadone, Urine MS negative
[2023-06-03 10:18] LABS: Alphahydroxymidazolam,GCMS Ur NEGATIVE; Alphahydroxytriazolam, GCMS Ur NEGATIVE; Alprazolam, GCMS Urine NEGATIVE; Lorazepam GCMS Urine NEGATIVE; Nordiazepam, GCMS Urine NEGATIVE; Oxazepam, GCMS Urine NEGATIVE; Temazepam, GCMS Urine NEGATIVE
[2023-06-03 10:19] LABS: Aminoclonazepam, GCMS Urine NEGATIVE; Flurazepam Metabolite,GCMS Ur NEGATIVE
== END 2023-05-27 08:19 | disposition home or self-care (01) ==
LOC: HO.LAB 08:18
PROVIDERS: Visit Provider Nurse Practitioner Family
DX: Z13.220 Encounter for screening for lipoid disorders (principal); Z12.5 Encounter for screening for malignant neoplasm of prostate; Z79.891 Long term (current) use of opiate analgesic; Z51.81 Encounter for therapeutic drug level monitoring; Z79.899 Other long term (current) drug therapy
CPT/HCPCS: 80061; 80307; 80346; 80348; 80354; 80358; 80362; 84153; G0480

== ENCOUNTER 2024-05-18 10:25 | Outpatient (REF) | payer OTHER, SELFPAY ==
[2024-05-18 10:57] LABS: MANUAL DIFF FLAG NO
[2024-05-18 11:59] LABS: Basophils Percent Auto 0.5 % (0-2); Eosinophils Absolute Auto 0.1 X10*3/uL (0.0-0.4); Eosinophils Percent Auto 1.7 % (0-4); Hematocrit 44.6 % (42.0-52.0); Imm Gran Abs Auto 0.03 X10*3/uL (0.00-0.03); Imm Gran Pct Auto 0.7 % (0.0-0.4); Lymphocytes Absolute Auto 0.8 X10*3/uL (1.2-4.9); Mean Corpuscular HGB Conc 33.6 g/dl (31.0-36.0); Mean Corpuscular Hemoglobin 30.7 pg (27.0-33.0); Mean Corpuscular Volume 91.2 fL (80.0-98.0); Mean Platelet Volume 11.8 fL (9.4-12.4); Monocytes Absolute Auto 0.4 X10*3/uL (0.1-1.2); Monocytes Percent Auto 9.3 % (2-11); Neutrophils Absolute Auto 2.9 x10*3/uL (2.0-8.3); Neutrophils Percent Auto 67.8 % (45-73); Platelet Count 166 X10*3/uL (160-400); Red Blood Count 4.89 X10*6/uL (4.60-5.80); Red Cell Distribution Width 13.1 % (11.0-16.0); White Blood Count 4.2 X10*3/uL (4.8-10.8)
[2024-05-18 12:11] LABS: Estimated Average Glucose 108 mg/dL; Hemoglobin A1c % 5.4 % (<6.0)
[2024-05-18 12:46] LABS: Alanine Aminotransferase 33 U/L (0-40); Albumin Level 4.4 g/dL (3.5-5.0); Alkaline Phosphatase 77 U/L (39-117); Anion Gap 12 (12-20); Aspartate Amino Transferase 23 U/L (5-37); Bilirubin Total 0.3 mg/dL (0.0-1.0); Blood Urea Nitrogen 22 mg/dL (9-16); Calcium 10.1 mg/dL (8.4-10.2); Carbon Dioxide 29 mmol/L (22-29); Chloride 108 mmol/L (96-108); Cholesterol 117 mg/dL (<200); Estimated Glomerular Filt Rate 52; Glucose Random 110 mg/dL (60-115); HDL Cholesterol 38 mg/dL (>40); LDL Cholesterol Calculated 62 mg/dL (<100); Potassium 5.6 mmol/L (3.3-5.1); Sodium 143 mmol/L (135-145); Total Protein 7.1 g/dL (6.5-8.0); Triglycerides 87 mg/dL (<150)
[2024-05-18 13:05] LABS: TSH reflex Free T4 2.94 uIU/mL (0.32-4.0)
== END 2024-05-18 10:26 | disposition home or self-care (01) ==
LOC: HO.LAB 10:25
PROVIDERS: PCP Nurse Practitioner Family; Visit Provider Nurse Practitioner Family
DX: Z00.00 Encounter for general adult medical examination without abnormal findings (principal); R73.03 Prediabetes; R73.9 Hyperglycemia, unspecified; Z12.5 Encounter for screening for malignant neoplasm of prostate
CPT/HCPCS: 36415; 80053; 80061; 83036; 84153; 84443; 85025